=== PATIENT | female | born 1945 | race Caucasian/White ===

== ENCOUNTER 2016-12-08 19:28 | Emergency (ER) | payer MEDICARE, OTHER ==
[~2016-12-08] VITALS: Ht 157.5 cm; Wt 97.8 kg
[2016-12-08] MEDS ORDERED: OMEP20CA3 PO (19:47)
[2016-12-08] MEDS ORDERED: DERMABOND TOPICAL SKIN ADHESIVE TOP ONE (21:45)
[2016-12-08 21:49] VITALS: BP 144/75
== END 2016-12-08 21:58 | disposition home or self-care (01) ==
LOC: M ED 19:28
DX: S61.011A Laceration without foreign body of right thumb without damage to nail, initial encounter (principal); X58.XXXA Exposure to other specified factors, initial encounter; Y92.099 Unspecified place in other non-institutional residence as the place of occurrence of the external cause; Y93.9 Activity, unspecified; Y99.9 Unspecified external cause status; E78.00 Pure hypercholesterolemia, unspecified; Z88.0 Allergy status to penicillin; Z88.2 Allergy status to sulfonamides

== ENCOUNTER → 2017-09-21 | Outpatient (CLI) | payer MEDICARE, OTHER | LOC: M WUC 11:35 | DX: J02.9 Acute pharyngitis, unspecified (principal) | CPT/HCPCS: 71046 ==

== ENCOUNTER 2018-08-14 17:49 | Emergency (ER) | payer MEDICARE, OTHER ==
[~2018-08-14] VITALS: Ht 154.9 cm; Wt 95.5 kg
[~2018-08-14 17:49] MED LIST: OMEP20CA3 PO
[2018-08-14] MEDS ORDERED: ASPI1TAB PO (18:15)
[2018-08-14] MEDS ORDERED: ATOR40TA75 PO (18:15)
[2018-08-14] MEDS ORDERED: PLAV1TAB2 PO (18:15)
[2018-08-14] MEDS ORDERED: CALC1TAB26 PO (18:15)
[2018-08-14] MEDS ORDERED: OMEG100011 PO (18:15)
[2018-08-14] MEDS ORDERED: ENTR1TAB PO (18:15)
[2018-08-14] MEDS ORDERED: NITR0.4S14 SL (18:15)
[2018-08-14] MEDS ORDERED: CO Q200C7 PO (18:15)
[2018-08-14] MEDS ORDERED: CETI10CH PO (18:15)
[2018-08-14] MEDS ORDERED: RANO5TAB PO (18:15)
[2018-08-14] MEDS ORDERED: traMADol 50 MG TAB PO ONE (19:30)
--- NOTE | 2018-08-14 20:13 | REPVR ---
EXAM: US Right Non-Vascular Joint or Other Extremity Structure, Limited Lower Extremity EXAM DATE/TIME: 08/14/2018 7:48 PM CLINICAL HISTORY: 72 years old, female; Pain; Thigh; Right; Prior surgery; Surgery date: Post-operative (0-2 days); Surgery type: Cardiac cath yesterday; Additional info: Eval for post cath abscess TECHNIQUE: Imaging protocol: Right US Non-Vascular Joint or Other Extremity Structure. Limited exam of the lower extremity. COMPARISON: No relevant prior studies available. FINDINGS: Soft tissues: Complex hypoechoic mass in the right inguinal region 5 x 1.8 x 3.2 cm. demonstrates enhanced through-transmission. Findings consistent with a post procedural hematoma. Abscess should be excluded clinically. IMPRESSION: Probable hematoma in the right groin. Abscess less likely. Electronically signed by: Harsha Hurtado On 08/14/2018 20:12:52 PM
[2018-08-14] MEDS ORDERED: traMADol 50 MG TAB (BULK 4 TAB ED) PO ONE (20:30)
[2018-08-14 20:55] VITALS: BP 147/74
== END 2018-08-14 20:56 | disposition home or self-care (01) ==
LOC: M ED 17:49
DX: I97.630 Postprocedural hematoma of a circulatory system organ or structure following a cardiac catheterization (principal); K21.9 Gastro-esophageal reflux disease without esophagitis; Z79.82 Long term (current) use of aspirin; Z79.899 Other long term (current) drug therapy; Z88.5 Allergy status to narcotic agent; Z88.0 Allergy status to penicillin; Z88.2 Allergy status to sulfonamides

== ENCOUNTER 2019-03-09 10:08 | Emergency (ER) | payer MEDICARE ==
[~2019-03-09] VITALS: Ht 157.5 cm; Wt 97.9 kg
[~2019-03-09 10:08] MED LIST changes: +ASPI81TA26 PO; +ATOR40TA75 PO; +CALC1TAB26 PO; +CETI10CH PO; +COQ1200C3 PO; +ENTR1TAB PO; +NITR0.4S14 SL; +OMEG100011 PO; -OMEP20CA3 PO; +OMEP20CA4 PO; +PLAV1TAB2 PO; +RANO500T7 PO
--- NOTE | 2019-03-09 10:52 | REP ---
Single view chest: 03/09/2019. Indication: Chest pain. Comparison: 09/21/2018. Findings: The lungs are clear. There is no pleural effusion or pneumothorax. Considering technique, the cardiac silhouette is not significantly enlarged. Impression: No acute cardiopulmonary process. Electronically Signed by Moose Sandoval DO 03/09/2019 10:44 A
[2019-03-09 11:13] LABS: BASO # 0.1 10^3/uL (0.0-0.2); BASO % 0.4 % (0.0-1.0); EOS % 0.1 % (0.0-3.0); HEMATOCRIT 43.5 % (36.0-47.0); HEMOGLOBIN 14.2 g/dl (12.0-15.5); LYMPH # 2.2 10^3/uL (1.5-5.0); LYMPH % 16.4 % (24.0-44.0); MEAN CORPUSCULAR HEMOGLOBIN 29.9 pg (27.0-33.0); MEAN CORPUSCULAR HGB CONC 32.6 g/dl (32.0-36.5); MEAN CORPUSCULAR VOLUME 91.6 fl (80.0-96.0); MONO # 0.7 10^3/uL (0.0-0.8); MONO % 5.3 % (0.0-5.0); NEUTROPHILS # 10.2 10^3/uL (1.5-8.5); NEUTROPHILS % 76.5 % (36.0-66.0); PLATELET COUNT, AUTOMATED 284 10^3/uL (150-450); RED BLOOD COUNT 4.75 10^6/uL (4.00-5.40); WHITE BLOOD COUNT 13.4 10^3/uL (4.0-10.0)
[2019-03-09] MEDS ORDERED: CARV6.25 PO (11:16)
[2019-03-09] MEDS ORDERED: GI COCKTAIL 50ML BTL(HYOSCYAMINE/MAALOX/LIDOCAINE VISCOUS)(1:3:1) PO ONE (11:30)
[2019-03-09 11:49] LABS: ALBUMIN 3.7 GM/DL (3.2-5.2); ALT/SGPT 21 U/L (12-78); BILIRUBIN,DIRECT 0.1 MG/DL (0.0-0.2); BILIRUBIN,TOTAL 0.4 MG/DL (0.2-1.0); BLOOD UREA NITROGEN 21 MG/DL (7-18); CARBON DIOXIDE LEVEL 30 MEQ/L (21-32); CHLORIDE LEVEL 107 MEQ/L (98-107); CK-MB VALUE MASS 1.2 NG/ML (<3.6); CPK CREATINE PHOSPHOKINASE 51 U/L (26-192); CREATININE FOR GFR 0.96 MG/DL (0.55-1.30); GLOMERULAR FILTRATION RATE > 60.0 (>39); GLUCOSE, FASTING 98 MG/DL (70-100); MB/CK RELATIVE INDEX 2.35 (< OR =4); POTASSIUM SERUM 4.5 MEQ/L (3.5-5.1); SODIUM LEVEL 141 MEQ/L (136-145); TOTAL PROTEIN 6.7 GM/DL (6.4-8.2); TROPONIN I < 0.02 NG/ML (< 0.10)
[2019-03-09 11:51] LABS: INR 1.05; PROTHROMBIN TIME 13.4 SECONDS (11.8-14.0)
[2019-03-09 11:52] LABS: PARTIAL THROMBOPLASTIN TIME 26.6 SECONDS (25.0-38.4)
[2019-03-09] MEDS ORDERED: ISOVUE-370 76% 100ML VIAL (Q9967) As Ordered ONE (14:36)
[2019-03-09 17:41] VITALS: BP 176/81
--- NOTE | 2019-03-09 21:28 | ECGEPIP ---
[facility] - ED Test Date: 2019-03-09 Pat Name: ALEXEY WOOD Department: Room: - Gender: Female [employer]st: : 1945 Requested By: NOEL Wilburn Order Number: [id number] Reading MD: Julio Hill Measurements Intervals [place] Rate: 50 P: 60 NM: 156 QRS: 45 QRSD: 93 T: 28 QT: 434 QTc: 397 Interpretive Statements SINUS BRADYCARDIA WITH SINUS ARRHYTHMIA MINIMAL ST DEPRESSION NO PRIORS FOR COMPARISON Electronically Signed on 03-09-2019 21:27:45 EDT by Julio Hill
== END 2019-03-09 17:49 | disposition short-term general hospital (02) ==
LOC: M ED 10:08
DX: I20.0 Unstable angina (principal); R00.1 Bradycardia, unspecified; I25.10 Atherosclerotic heart disease of native coronary artery without angina pectoris; E78.5 Hyperlipidemia, unspecified; K21.9 Gastro-esophageal reflux disease without esophagitis; Z95.1 Presence of aortocoronary bypass graft; Z95.5 Presence of coronary angioplasty implant and graft; Z79.82 Long term (current) use of aspirin; Z79.899 Other long term (current) drug therapy; Z88.0 Allergy status to penicillin; Z88.2 Allergy status to sulfonamides; Z88.5 Allergy status to narcotic agent

== ENCOUNTER → 2020-12-04 | Outpatient (CLI) | payer MEDICARE ==
[~2020-12-04] MED LIST changes: +CARV6.25 PO; +OMEP1CAP73 PO; -OMEP20CA4 PO
--- NOTE | 2020-12-04 17:05 | DEXAMM ---
INDICATION: M85.9 DISODER OF BONE DENSITY AND STRUCTURE. COMPARISON: Comparison study June 03, 2017 and November 20, 2000.. TECHNIQUE: Bone density was measured using dual-energy x-ray absorptionmetry (DEXA). FINDINGS: AP SPINE L1-L4 BMD 1.348 g/cm2 Young Adult T-Score 1.2 Age Matched Z-Score 3.0. LT FEMUR, TOTAL BMD 0.977 g/cm2 Young Adult T-Score -0.2 Age Matched Z-Score 1.5. LT NECK BMD 0.951 g/cm2 Young Adult T-Score -0.6 Age Matched Z-Score is 1.3. RT FEMUR, TOTAL BMD 1.005 g/cm2 Young Adult T-Score 0.0 Age Matched Z-Score 1.7. RT NECK BMD 0.982 g/cm2 Young Adult T-Score -0.4 Age Matched Z-Score 1.5. IMPRESSION: There is normal bone density of the spine. There is normal bone density of the left hip. There is normal bone density of the right hip. The density of the spine has increased 14.4% since the initial exam on November 20, 2000. The density of the spine increased 9.6% since most recent exam on June 03, 2017. The density of the left hip has increased 2.1% since initial exam on November 20, 2000. The density of the left hip has increased 4.2% since most recent exam on June 03, 2017. The density of the right hip has increased 5.0% since the initial exam on June 22, 2000. The density of the right hip has increased 7.8% since the most recent exam on June 03, 2017. FOLLOW-UP: Recommendation for the next bone density exam: 10 years. <Electronically signed by Rene Diez > 12/04/20 [id number]
== END ==
LOC: M WHC 15:10
PROVIDERS: ATTEND Family Medicine
DX: M85.88 Other specified disorders of bone density and structure, other site (principal)

== ENCOUNTER → 2021-10-17 | Outpatient (CLI) | payer MEDICARE | LOC: M WHC 08:19 | PROVIDERS: ATTEND Family Medicine | DX: Z12.31 Encounter for screening mammogram for malignant neoplasm of breast (principal) ==

== ENCOUNTER → 2022-07-08 | Outpatient (CLI) | payer MEDICARE ==
[~2022-07-08] MED LIST changes: +CLOP75TA99 PO; -PLAV1TAB2 PO
== END ==
LOC: M PLAIMG 14:51
PROVIDERS: ATTEND Family Medicine
DX: R05.1 Acute cough (principal)

== ENCOUNTER → 2022-07-17 | Outpatient (CLI) | payer MEDICARE | LOC: M PLAIMG 11:04 | PROVIDERS: ATTEND Family Medicine | DX: R91.1 Solitary pulmonary nodule (principal) ==

== ENCOUNTER → 2022-10-18 | Outpatient (CLI) | payer MEDICARE | LOC: M WHC 08:53 | PROVIDERS: ATTEND Family Medicine | DX: Z12.31 Encounter for screening mammogram for malignant neoplasm of breast (principal) ==

== ENCOUNTER → 2023-10-22 | Outpatient (CLI) | payer MEDICARE | LOC: M WHC 10:37 | PROVIDERS: ATTEND Family Medicine | DX: Z12.31 Encounter for screening mammogram for malignant neoplasm of breast (principal) ==

== ENCOUNTER → 2023-11-24 | Outpatient (CLI) | payer MEDICARE | LOC: M PLAIMG 08:50 | PROVIDERS: ATTEND Family Medicine | DX: R91.1 Solitary pulmonary nodule (principal) ==

== ENCOUNTER → 2024-01-23 | Outpatient (CLI) | payer MEDICARE | LOC: M PLAIMG 12:27 → M CARPUL 12:50 | PROVIDERS: ATTEND Physician Assistant | DX: I34.0 Nonrheumatic mitral (valve) insufficiency (principal); I77.810 Thoracic aortic ectasia ==

== ENCOUNTER → 2024-07-27 | Outpatient (CLI) | payer MEDICARE | LOC: M WHC 09:09 | PROVIDERS: ATTEND Family Medicine | DX: M85.9 Disorder of bone density and structure, unspecified (principal); Z78.0 Asymptomatic menopausal state ==

== ENCOUNTER → 2024-09-06 | Outpatient (CLI) | payer MEDICARE | LOC: M PLAIMG 09:30 | PROVIDERS: ATTEND Family Medicine | DX: M79.669 Pain in unspecified lower leg (principal); M16.11 Unilateral primary osteoarthritis, right hip; M17.11 Unilateral primary osteoarthritis, right knee; M47.816 Spondylosis without myelopathy or radiculopathy, lumbar region ==

== ENCOUNTER → 2025-03-07 | Outpatient (CLI) | payer MEDICARE | LOC: M RAD 13:39 | PROVIDERS: ATTEND Family Medicine | DX: R91.8 Other nonspecific abnormal finding of lung field (principal); I25.10 Atherosclerotic heart disease of native coronary artery without angina pectoris; Z90.49 Acquired absence of other specified parts of digestive tract ==